=== PATIENT | male | born 1955 | race Two or more races ===

== ENCOUNTER 2018-01-30 17:15 | Emergency (ER) | payer OTHER ==
[~2018-01-30] VITALS: Ht 180.3 cm; Wt 86.2 kg
[~2018-01-30 17:15] MED LIST: FLONASE16 GM NS; ZYRTEC10 MG PO
[2018-01-30] MEDS ORDERED: CRESTOR20 MG (17:33)
[2018-01-30] MEDS ORDERED: TOPROL XL25 M1 (17:33)
[2018-01-30] MEDS ORDERED: FORTAMET1000 MG (17:33)
[2018-01-30] MEDS ORDERED: ASPIR 8181 MG (17:34)
[2018-01-30] MEDS ORDERED: BENICAR40 MG (17:34)
== END 2018-01-30 19:39 | disposition home or self-care (01) ==
LOC: ER 17:15
DX: N20.1 Calculus of ureter (principal)

== ENCOUNTER 2018-01-31 02:01 | Day surgery (SDC) | payer OTHER ==
[~2018-01-31] VITALS: Ht 180.3 cm; Wt 87.1 kg
[~2018-01-31 02:01] MED LIST changes: +ASPIR 8181 MG; +BENICAR40 MG; +CRESTOR20 MG; +FORTAMET1000 MG; +TOPROL XL25 M1
== END 2018-01-31 15:55 | disposition home or self-care (01) ==
LOC: ER 02:01 → CIR.AMB 09:20
DX: N20.1 Calculus of ureter (principal); N13.5 Crossing vessel and stricture of ureter without hydronephrosis; I10 Essential (primary) hypertension; E78.00 Pure hypercholesterolemia, unspecified; E11.9 Type 2 diabetes mellitus without complications

== ENCOUNTER → 2018-02-07 08:30 | Outpatient (CLI) | payer OTHER | END | disposition home or self-care (01) | LOC: LAB 08:30 | DX: N20.1 Calculus of ureter (principal); E11.9 Type 2 diabetes mellitus without complications; I11.9 Hypertensive heart disease without heart failure ==

== ENCOUNTER 2018-02-15 05:50 | Day surgery (SDC) | payer OTHER | END 2018-02-15 13:05 | disposition home or self-care (01) | LOC: CIR.AMB 05:50 | DX: N20.1 Calculus of ureter (principal) ==

== ENCOUNTER → 2018-04-11 13:51 | Outpatient (CLI) | payer OTHER | END | disposition home or self-care (01) | LOC: LAB 13:51 | DX: D64.89 Other specified anemias (principal); N39.0 Urinary tract infection, site not specified; E11.65 Type 2 diabetes mellitus with hyperglycemia; E11.21 Type 2 diabetes mellitus with diabetic nephropathy ==

== ENCOUNTER 2018-12-07 15:12 | Outpatient (CLI) | payer OTHER | END 2018-12-07 15:20 | disposition home or self-care (01) | LOC: LAB 15:12 | DX: D64.89 Other specified anemias (principal); D68.62 Lupus anticoagulant syndrome; D68.8 Other specified coagulation defects; E78.2 Mixed hyperlipidemia; E11.65 Type 2 diabetes mellitus with hyperglycemia; N39.0 Urinary tract infection, site not specified; E11.21 Type 2 diabetes mellitus with diabetic nephropathy; N40.0 Benign prostatic hyperplasia without lower urinary tract symptoms; E03.8 Other specified hypothyroidism ==

== ENCOUNTER → 2018-12-09 14:10 | Outpatient (CLI) | payer OTHER | END | disposition home or self-care (01) | LOC: LAB 14:10 | DX: E03.8 Other specified hypothyroidism (principal); D68.62 Lupus anticoagulant syndrome; D64.89 Other specified anemias; D68.8 Other specified coagulation defects; E78.2 Mixed hyperlipidemia; E11.65 Type 2 diabetes mellitus with hyperglycemia; N39.0 Urinary tract infection, site not specified; E11.21 Type 2 diabetes mellitus with diabetic nephropathy; N40.0 Benign prostatic hyperplasia without lower urinary tract symptoms ==

== ENCOUNTER → 2019-04-13 13:22 | Outpatient (CLI) | payer OTHER | END | disposition home or self-care (01) | LOC: LAB 13:22 | DX: E11.65 Type 2 diabetes mellitus with hyperglycemia (principal); D64.89 Other specified anemias; N40.1 Benign prostatic hyperplasia with lower urinary tract symptoms ==

== ENCOUNTER → 2019-05-14 12:58 | Outpatient (CLI) | payer OTHER | END | disposition home or self-care (01) | LOC: LAB 12:58 | DX: R97.20 Elevated prostate specific antigen [PSA] (principal) ==

== ENCOUNTER → 2019-06-01 | Outpatient (CLI) | payer OTHER | END | disposition home or self-care (01) | LOC: SONOGRAMA 07:23 | DX: C61 Malignant neoplasm of prostate (principal); R97.20 Elevated prostate specific antigen [PSA] ==

== ENCOUNTER 2019-06-21 09:48 | Outpatient (CLI) | payer OTHER | END 2019-06-21 09:51 | disposition home or self-care (01) | LOC: NUCLEAR 09:48 | DX: C61 Malignant neoplasm of prostate (principal) | CPT/HCPCS: 78306; 78320; A9503 ==

== ENCOUNTER → 2019-06-21 | Outpatient (CLI) | payer OTHER | END | disposition home or self-care (01) | LOC: TOM 14:14 | DX: C61 Malignant neoplasm of prostate (principal) ==

== ENCOUNTER 2019-11-05 10:59 | Outpatient (CLI) | payer OTHER | END 2019-11-05 11:16 | disposition home or self-care (01) | LOC: LAB 10:59 | DX: D64.89 Other specified anemias (principal); N39.0 Urinary tract infection, site not specified; D68.8 Other specified coagulation defects; E11.65 Type 2 diabetes mellitus with hyperglycemia; E78.2 Mixed hyperlipidemia; N40.1 Benign prostatic hyperplasia with lower urinary tract symptoms; R50.83 Postvaccination fever; A48.3 Toxic shock syndrome; J10.1 Influenza due to other identified influenza virus with other respiratory manifestations; B34.8 Other viral infections of unspecified site; Z20.828 Contact with and (suspected) exposure to other viral communicable diseases ==

== ENCOUNTER 2019-11-28 06:10 | Inpatient (IN) | payer OTHER ==
[~2019-11-28] VITALS: Ht 180.3 cm; Wt 88.5 kg
[~2019-11-28 06:10] MED LIST changes: -ASPIR 8181 MG; +ASPIR 8181 MG PO; -BENICAR40 MG; +BENICAR40 MG PO; -CRESTOR20 MG; +CRESTOR20 MG PO; -TOPROL XL25 M1; +TOPROL XL25 M1 PO
[2019-11-29] MEDS ORDERED: JANUMET XR 50-1 EAC1 PO (09:46)
[2019-11-29] MEDS ORDERED: DOXAZOSIN MESYLA4 MG PO (09:47)
[2019-11-29] MEDS ORDERED: VITAMIN B-121000 MC4 PO (09:50)
[2019-11-29] MEDS ORDERED: VITAMIN B-1100 M1 PO (09:51)
== END 2019-12-01 08:52 | disposition home or self-care (01) | DRG 708 ==
LOC: CIR.AMB 06:10 → SURG 14:01
PROVIDERS: ADMIT Urology
PROC: 0VT00ZZ Resection of Prostate, Open Approach (ICD-10-PCS; principal; 2019-11-28 07:00)
DX: C61 Malignant neoplasm of prostate (principal); E11.9 Type 2 diabetes mellitus without complications; D64.9 Anemia, unspecified; I11.9 Hypertensive heart disease without heart failure; Z19.1 Hormone sensitive malignancy status; Z79.4 Long term (current) use of insulin

== ENCOUNTER → 2020-01-03 12:08 | Outpatient (CLI) | payer OTHER ==
[~2020-01-03 12:08] MED LIST changes: +DOXAZOSIN MESYLA4 MG PO; +JANUMET XR 50-1 EAC1 PO; +VITAMIN B-1100 M1 PO; +VITAMIN B-121000 MC4 PO
== END | disposition home or self-care (01) ==
LOC: LAB 12:08
PROVIDERS: ATTEND Urology
DX: N39.0 Urinary tract infection, site not specified (principal); D64.89 Other specified anemias; E11.65 Type 2 diabetes mellitus with hyperglycemia; E55.9 Vitamin D deficiency, unspecified; C61 Malignant neoplasm of prostate

== ENCOUNTER → 2020-02-22 09:17 | Outpatient (CLI) | payer OTHER | END | disposition home or self-care (01) | LOC: LAB 09:17 | PROVIDERS: ATTEND Specialist | DX: Z20.828 Contact with and (suspected) exposure to other viral communicable diseases (principal); J45.998 Other asthma ==

== ENCOUNTER → 2020-03-13 | Outpatient (CLI) | payer OTHER | END | disposition home or self-care (01) | LOC: MRI 13:20 | PROVIDERS: ATTEND Internal Medicine Cardiovascular Disease | DX: M51.26 Other intervertebral disc displacement, lumbar region (principal) | CPT/HCPCS: 72148 ==

== ENCOUNTER → 2020-04-11 | Outpatient (CLI) | payer OTHER | END | disposition home or self-care (01) | LOC: LAB 13:33 | PROVIDERS: ATTEND Specialist | DX: C61 Malignant neoplasm of prostate (principal); D64.89 Other specified anemias; R97.21 Rising PSA following treatment for malignant neoplasm of prostate; N39.0 Urinary tract infection, site not specified; E11.65 Type 2 diabetes mellitus with hyperglycemia ==

== ENCOUNTER 2020-04-22 15:29 | Outpatient (CLI) | payer OTHER | END 2020-04-22 15:30 | disposition home or self-care (01) | LOC: PPH VACUNA 15:29 | DX: Z23 Encounter for immunization (principal) ==

== ENCOUNTER 2020-06-24 12:46 | Outpatient (CLI) | payer OTHER | END 2020-06-24 18:00 | disposition home or self-care (01) | LOC: PPH VACUNA 12:46 | DX: Z23 Encounter for immunization (principal) ==

== ENCOUNTER → 2021-02-27 15:00 | Outpatient (CLI) | payer OTHER | END | disposition home or self-care (01) | LOC: PPH VACUNA 15:00 | DX: Z23 Encounter for immunization (principal) ==

== ENCOUNTER 2021-03-17 14:36 | Outpatient (CLI) | payer OTHER | END 2021-03-17 15:57 | disposition home or self-care (01) | LOC: LAB 14:36 | DX: Z03.818 Encounter for observation for suspected exposure to other biological agents ruled out (principal) ==

== ENCOUNTER 2021-04-03 11:35 | Outpatient (CLI) | payer OTHER | END 2021-04-03 12:00 | disposition home or self-care (01) | LOC: SONOGRAMA 11:35 | PROVIDERS: ATTEND Radiology Diagnostic Radiology | DX: M71.551 Other bursitis, not elsewhere classified, right hip (principal) ==

== ENCOUNTER 2021-04-08 08:00 | Outpatient (CLI) | payer OTHER | END 2021-04-08 08:30 | disposition home or self-care (01) | LOC: PPH VACUNA 08:00 | PROVIDERS: ATTEND Emergency Medicine Pediatric Emergency Medicine | DX: Z23 Encounter for immunization (principal) ==

== ENCOUNTER 2021-06-26 15:39 | Outpatient (CLI) | payer OTHER | END 2021-06-26 15:42 | disposition home or self-care (01) | LOC: LAB 15:39 | PROVIDERS: ATTEND Specialist | DX: Z20.828 Contact with and (suspected) exposure to other viral communicable diseases (principal); Z03.818 Encounter for observation for suspected exposure to other biological agents ruled out ==

== ENCOUNTER 2021-07-03 11:43 | Outpatient (CLI) | payer OTHER | END 2021-07-03 16:42 | disposition home or self-care (01) | LOC: LAB 11:43 | PROVIDERS: ATTEND Specialist | DX: Z20.822 Contact with and (suspected) exposure to COVID-19 (principal) ==

== ENCOUNTER 2021-07-20 10:05 | Outpatient (CLI) | payer OTHER | END 2021-07-20 10:15 | disposition home or self-care (01) | LOC: SONOGRAMA 10:05 | PROVIDERS: ATTEND Radiology Diagnostic Radiology | DX: M25.551 Pain in right hip (principal) ==

== ENCOUNTER 2021-08-24 13:17 | Outpatient (CLI) | payer OTHER | END 2021-08-25 14:35 | disposition home or self-care (01) | LOC: RAD 13:17 | PROVIDERS: ATTEND Radiology Diagnostic Radiology | DX: M21.70 Unequal limb length (acquired), unspecified site (principal); M16.0 Bilateral primary osteoarthritis of hip ==

== ENCOUNTER 2021-09-16 13:52 | Outpatient (CLI) | payer OTHER | END 2021-09-16 14:18 | disposition home or self-care (01) | LOC: LAB 13:52 | PROVIDERS: ATTEND Specialist | DX: D51.0 Vitamin B12 deficiency anemia due to intrinsic factor deficiency (principal); D68.8 Other specified coagulation defects; U07.1 COVID-19; E11.65 Type 2 diabetes mellitus with hyperglycemia; E78.2 Mixed hyperlipidemia; N40.1 Benign prostatic hyperplasia with lower urinary tract symptoms; E11.21 Type 2 diabetes mellitus with diabetic nephropathy; N39.0 Urinary tract infection, site not specified; E55.9 Vitamin D deficiency, unspecified; E03.9 Hypothyroidism, unspecified; J45.998 Other asthma; J01.00 Acute maxillary sinusitis, unspecified; J01.10 Acute frontal sinusitis, unspecified ==

== ENCOUNTER 2021-10-20 07:55 | Outpatient (CLI) | payer OTHER | END 2021-10-20 08:10 | disposition home or self-care (01) | LOC: PPH VACUNA 07:55 | PROVIDERS: ATTEND Emergency Medicine Pediatric Emergency Medicine | DX: Z23 Encounter for immunization (principal) ==

== ENCOUNTER 2022-05-03 12:43 | Outpatient (CLI) | payer OTHER | END 2022-05-03 12:53 | disposition home or self-care (01) | LOC: PPH VACUNA 12:43 | PROVIDERS: ATTEND Emergency Medicine Pediatric Emergency Medicine | DX: Z23 Encounter for immunization (principal) ==

== ENCOUNTER 2023-06-15 13:40 | Outpatient (CLI) | payer OTHER ==
[2023-06-15 14:43] LABS: HEMATOCRIT 43.7 % (39.0-48.0); HEMOGLOBIN 14.4 g/dL (13-16.00); MEAN CELL VOLUME 79.4 fL (80.0-100.00); MEAN CORPUSCULAR HEMOGLOBIN 26.2 pg (27.00-32.0); PLATELET COUNT 353 K/uL (150-450); RED BLOOD COUNT 5.51 M/uL (4.00-6.00); RED CELL DISTRIBUTION WIDTH 15.6 % (11.5-14.5)
[2023-06-15 14:49] LABS: ALBUMIN 4.1 gm/dL (3.4-5.0); ALKALINE PHOSPHATASE 74 U/L (50-136); ALT/SGPT 24 U/L (12-78); ANION GAP 9 (10.0-20.0); AST/SGOT 15 U/L (15-37); BLOOD UREA NITROGEN 21 mg/dL (7-18); BUN CREA RATIO 18 (7.0-25.0); CALCIUM 9.7 mg/dL (8.5-10.1); CARBON DIOXIDE 30 mEq/L (21-32); CHLORIDE 108 mmol/L (98-107); CREATININE SERUM 1.14 mg/dL (0.70-1.30); ERYTHROCYTE SEDIMENTATION RATE 40 mm/hr; GFR 63.88; GLOBULINA 4.2 G/DL (2.4-3.5); GLUCOSE FASTING 141 mg/dL (65-100); OSMOLALITY SERUM 288 MOSM/KG (275-295); POTASSIUM 4.93 mEq/L (3.5-5.1); SODIUM 142 mmol/L (136-145); TOTAL PROTEIN 8.3 gm/dL (6.4-8.2)
[2023-06-15 15:01] LABS: C-REACTIVE PROTEIN < 0.29 MG/DL (0.00-0.29)
[2023-06-15 15:04] LABS: TSH 0.855 uIU/mL (0.358-3.74)
[2023-06-15 15:53] LABS: MYCOPLASMA PNEUMONIAE IGM NON REACTIVE (NO REACTIVE)
== END 2023-06-15 13:47 | disposition home or self-care (01) ==
LOC: LAB 13:40
PROVIDERS: ATTEND Specialist
DX: A49.3 Mycoplasma infection, unspecified site (principal); J11.83 Influenza due to unidentified influenza virus with otitis media; J11.82 Influenza due to unidentified influenza virus with myocarditis; J45.998 Other asthma; D64.9 Anemia, unspecified; E11.65 Type 2 diabetes mellitus with hyperglycemia; E11.21 Type 2 diabetes mellitus with diabetic nephropathy; E03.9 Hypothyroidism, unspecified

== ENCOUNTER 2025-01-22 08:08 | Outpatient (CLI) | payer OTHER ==
[2025-01-22 08:46] LABS: URINE APPEARANCE Clear; URINE BILIRRUBIN Negative (NEGATIVE); URINE BLOOD Negative; URINE COLOR Yellow; URINE GLUCOSE Negative (NEGATIVE); URINE KETONE Trace (NEGATIVE); URINE LEUKOCYTE Negative; URINE NITRATE Negative; URINE PROTEIN 30 (NEGATIVE); URINE UROBILINOGEN 1.0 E.U./dl
[2025-01-22 08:51] LABS: URINE BACTERIA 22.7 uL (0.0-1933); URINE CAST 2.19 uL (0.0-1.40); URINE EPITHELIAL CELLS 12.4 uL (0.0-38.8); URINE RBC 3.0 uL (0.0-20.8); URINE WBC 8.3 uL (0.0-23.2)
[2025-01-22 08:54] LABS: BASO % 0.7 % (0.1-1.2); EOS # 0.18 (0.04-0.54); EOS % 3.0 % (0.7-7.0); LYMPH # 1.52 (1.18-3.74); LYMPH % 25.5 % (19.3-53.1); MEAN PLATELET VOLUME 9.30 fl (9.4-12.4); MONO # 0.54 (0.24-0.82); MONO % 9.1 % (4.7-12.5); NEUT # 3.66 (1.56-6.13); NEUT % 61.5 % (34.0-71.1); RED CELL DISTRIBUTION WIDTH 14.6 % (11.6-14.4)
[2025-01-22 09:46] LABS: CREATININE URINE RANDOM 322.0 MG/DL (30-125)
[2025-01-22 10:38] LABS: ALT/SGPT 26 U/L (12-78); AST/SGOT 15 U/L (15-37); BILIRUBIN TOTAL 0.62 mg/dL (0.3-1.2); BILIRUBIN,CONJUGATED 0.13 mg/dL (0.0-0.2); BUN CREA RATIO 23 (7.0-25.0); CHOL HDL RATIO 4.0 (0-5.0); CREATININE SERUM 1.19 mg/dL (0.70-1.30); FREE TRIODOTIRONINE 3.09 pg/ml (2.18-3.98); GFR 60.61; GLOBULINA 3.5 G/DL (2.4-3.5); GLUCOSE FASTING 121 mg/dL (65-100); HDL 42 mg/dl (40-60); OSMOLALITY SERUM 289 MOSM/KG (275-295); PROSTATIC SPECIFIC ANTIGEN 0.014 NG/ML (0.010-4.00); T4 FREE 0.97 NG/ML (0.76-1.46); TSH 2.640 uIU/mL (0.358-3.74)
[2025-01-22 11:07] LABS: LDL 84 mg/dl (0-130); VLDL 44 (0-39)
== END 2025-01-22 08:47 | disposition home or self-care (01) ==
LOC: LAB 08:08
PROVIDERS: ATTEND Specialist
DX: E03.9 Hypothyroidism, unspecified (principal); N39.9 Disorder of urinary system, unspecified; N40.0 Benign prostatic hyperplasia without lower urinary tract symptoms; E78.2 Mixed hyperlipidemia; E11.65 Type 2 diabetes mellitus with hyperglycemia; D64.9 Anemia, unspecified; J45.998 Other asthma; K75.81 Nonalcoholic steatohepatitis (NASH); N25.81 Secondary hyperparathyroidism of renal origin; N39.0 Urinary tract infection, site not specified; E55.9 Vitamin D deficiency, unspecified

== ENCOUNTER 2025-06-17 09:00 | Outpatient (CLI) | payer OTHER ==
[2025-06-17 10:02] LABS: URINE APPEARANCE Clear; URINE BILIRRUBIN Negative (NEGATIVE); URINE BLOOD Negative; URINE COLOR Yellow; URINE KETONE Negative (NEGATIVE); URINE LEUKOCYTE Negative; URINE NITRATE Negative; URINE PROTEIN Trace (NEGATIVE); URINE UROBILINOGEN 1.0 E.U./dl
[2025-06-17 10:06] LABS: URINE BACTERIA 10.2 uL (0.0-1933); URINE EPITHELIAL CELLS 4.8 uL (0.0-38.8); URINE RBC 2.5 uL (0.0-20.8); URINE WBC 2.9 uL (0.0-23.2)
[2025-06-17 10:09] LABS: URINE CAST 0.28 uL (0.0-1.40); URINE GLUCOSE >=1000 MG/DL (NEGATIVE)
[2025-06-17 10:15] LABS: BASO % 0.7 % (0.1-1.2); EOS # 0.24 (0.04-0.54); EOS % 4.4 % (0.7-7.0); LYMPH # 1.41 (1.18-3.74); LYMPH % 26.0 % (19.3-53.1); MEAN PLATELET VOLUME 9.70 fl (9.4-12.4); MONO # 0.47 (0.24-0.82); MONO % 8.7 % (4.7-12.5); NEUT # 3.26 (1.56-6.13); NEUT % 60.0 % (34.0-71.1); RED CELL DISTRIBUTION WIDTH 14.9 % (11.6-14.4)
[2025-06-17 10:19] LABS: CREATININE URINE RANDOM 182.0 MG/DL (30-125)
[2025-06-17 11:19] LABS: FE 90.0 ug/dl (65-175)
[2025-06-17 11:20] LABS: ALT/SGPT 25 U/L (12-78); AST/SGOT 18 U/L (15-37); BILIRUBIN TOTAL 0.64 mg/dL (0.3-1.2); BUN CREA RATIO 19 (7.0-25.0); CHOL HDL RATIO 3.2 (0-5.0); CREATININE SERUM 1.58 mg/dL (0.70-1.30); FREE TRIODOTIRONINE 2.73 pg/ml (2.18-3.98); GFR 43.57; GLOBULINA 3.6 G/DL (2.4-3.5); GLUCOSE FASTING 126 mg/dL (65-100); HDL 48 mg/dl (40-60); LDL 73 mg/dl (0-130); OSMOLALITY SERUM 291 MOSM/KG (275-295); PROSTATIC SPECIFIC ANTIGEN 0.019 NG/ML (0.010-4.00); T4 FREE 1.07 NG/ML (0.76-1.46); TSH 1.410 uIU/mL (0.358-3.74); VLDL 31 (0-39)
[2025-06-17 14:25] LABS: FOLIC ACID 19.87 ng/ml (4.78-20)
== END 2025-06-17 09:43 | disposition home or self-care (01) ==
LOC: LAB 09:00
PROVIDERS: ATTEND Specialist
DX: E03.9 Hypothyroidism, unspecified (principal); E11.21 Type 2 diabetes mellitus with diabetic nephropathy; N39.0 Urinary tract infection, site not specified; D40.0 Neoplasm of uncertain behavior of prostate; E11.65 Type 2 diabetes mellitus with hyperglycemia; E78.2 Mixed hyperlipidemia; D64.9 Anemia, unspecified; J45.998 Other asthma; N25.81 Secondary hyperparathyroidism of renal origin; M81.0 Age-related osteoporosis without current pathological fracture; D51.0 Vitamin B12 deficiency anemia due to intrinsic factor deficiency